=== PATIENT | female | born 1945 | race Caucasian/White ===

== ENCOUNTER 2019-05-13 10:28 | Outpatient (CLI) | payer OTHER | END 2019-05-13 15:00 | disposition home or self-care (01) | LOC: LAB 10:28 | DX: D64.89 Other specified anemias (principal); D68.8 Other specified coagulation defects; Z01.811 Encounter for preprocedural respiratory examination; I10 Essential (primary) hypertension ==

== ENCOUNTER 2019-06-17 17:34 | Emergency (ER) | payer OTHER ==
[~2019-06-17] VITALS: Ht 162.6 cm; Wt 74.8 kg
== END 2019-06-18 18:50 | disposition home or self-care (01) ==
LOC: ER 17:34
DX: I82.431 Acute embolism and thrombosis of right popliteal vein (principal); I82.441 Acute embolism and thrombosis of right tibial vein; Z96.651 Presence of right artificial knee joint; M79.661 Pain in right lower leg